=== PATIENT | female | born 1995 | race Caucasian/White ===

== ENCOUNTER 2017-03-01 17:26 | Emergency (ER) | payer OTHER ==
[~2017-03-01] VITALS: Ht 149.9 cm; Wt 87.0 kg
[~2017-03-01 17:26] MED LIST: ACYCLOVIR400 MG PO; ALBUTEROL SULF8.5 GM IH; AVIANE1 EACH PO; ENDOCET 5-3251 EACH PO; GABAPENTIN300 MG PO; HYDROCODON-ACE1 EAC7 PO; IBUPROFEN800 MG PO; IRON325 M1 PO; MACROBID100 MG PO; NAPROSYN500 MG PO; NAPROXEN500 MG PO; NORCO 5/3251 TABLET PO; PEN-VEE K,VEET500 MG PO; PREDNISONE10 MG PO; SILVADENE20 GM TP; SOLU-MEDRO40 MG/1 ML PO; TRAMADOL HCL50 MG PO; TYLENOL EXTRA500 MG PO; VALTREX50 MG/ML PO; ZOFRAN4 MG PO
[2017-03-01 18:59] LABS: HEMATOCRIT 36.9 % (36.0-46.0); MCH 29.8 PG (29.0-34.0); MCHC 34.4 G/DL (30.0-36.0); MCV 86.6 FL (83-99); MEAN PLAT.VOLUME 9.7 uM^3 (9.5-12.4); PLATELET COUNT 305 K/uL (156-360); RBC DIS.WIDTH-CV 13.6 % (11.8-14.6); RBC DIS.WIDTH-SD 42.5 % (39-53); RED BLOOD COUNT 4.26 M/uL (3.80-5.20); WHITE BLOOD COUNT 8.6 K/uL (4.1-10.2)
[2017-03-01 19:08] LABS: CHLORIDE 108 mEq/L (99-109); POTASSIUM 3.6 mEq/L (3.7-5.4); SODIUM 139 mEq/L (136-147)
[2017-03-01 19:10] LABS: GLUCOSE 77 mg/dL (70-99)
[2017-03-01 19:11] LABS: ANION GAP 13 MEQ/L (2-14)
[2017-03-01 19:12] LABS: TOTAL BILIRUBIN 0.1 mg/dL (0.0-1.0)
[2017-03-01 19:12] LABS: ADD MIUA? NO; BILIRUBIN NEGATIVE; BLOOD NEGATIVE; COLOR YELLOW ((YELLOW)); GLUCOSE (STRIP) NEGATIVE; KETONES NEGATIVE; LEUKOCYTES NEGATIVE; NITRITE NEGATIVE; PROTEIN (STRIP) 30; UCUL ADDED? NO; UROBILINOGEN 0.2 MG/DL (0.2-1.0)
[2017-03-01 19:13] LABS: ALKALINE PHOSPHATASE 79 IU/L (3-129)
[2017-03-01 19:14] LABS: GFR ESTIMATE (CALCULATED) > 59 mL/min/
[2017-03-01 19:15] LABS: UREA NITROGEN (BUN) 8 mg/dL (9-23)
[2017-03-01] MEDS ORDERED: REGLAN10 MG PO (19:43)
[2017-03-01 19:50] LABS: QUANTITATIVE HCG 45133.7 MIU/ML
[2017-03-01 20:05] VITALS: BP 126/79
== END 2017-03-01 20:02 | disposition home or self-care (01) ==
LOC: EME 17:26
DX: O99.89 Other specified diseases and conditions complicating pregnancy, childbirth and the puerperium (principal); G43.909 Migraine, unspecified, not intractable, without status migrainosus; O99.281 Endocrine, nutritional and metabolic diseases complicating pregnancy, first trimester; E86.0 Dehydration; O99.511 Diseases of the respiratory system complicating pregnancy, first trimester; J45.909 Unspecified asthma, uncomplicated; Z3A.13 13 weeks gestation of pregnancy
CPT/HCPCS: 80053; 81003; 84702; 85027; 99281; 99285; J1200; J2765; J3475; J7030

== ENCOUNTER 2017-03-15 16:46 | Emergency (ER) | payer OTHER ==
[~2017-03-15] VITALS: Ht 149.9 cm; Wt 85.6 kg
[~2017-03-15 16:46] MED LIST changes: +REGLAN10 MG PO
[2017-03-15 18:02] LABS: ADD MIUA? YES; BILIRUBIN NEGATIVE; BLOOD NEGATIVE; COLOR YELLOW ((YELLOW)); GLUCOSE (STRIP) NEGATIVE; KETONES NEGATIVE; LEUKOCYTES MODERATE; NITRITE NEGATIVE; PROTEIN (STRIP) NEGATIVE; SPECIFIC GRAVITY 1.016 (1.000-1.030); UROBILINOGEN 0.2 MG/DL (0.2-1.0)
[2017-03-15 18:07] LABS: BACTERIA NONE SEEN /HPF; EPITHELIAL CELLS 2+ /HPF; MUCUS 2+ /LPF; RED BLOOD CELLS 0-5 /HPF (0-5)
[2017-03-15] MEDS ORDERED: FLEXERIL10 MG PO (18:15)
[2017-03-15 18:31] VITALS: BP 111/66
== END 2017-03-15 18:32 | disposition home or self-care (01) ==
LOC: EME 16:46 → RME 16:46
PROVIDERS: Physician Assistant
DX: O99.89 Other specified diseases and conditions complicating pregnancy, childbirth and the puerperium (principal); S39.012A Strain of muscle, fascia and tendon of lower back, initial encounter; Z3A.16 16 weeks gestation of pregnancy; O99.332 Smoking (tobacco) complicating pregnancy, second trimester; F17.200 Nicotine dependence, unspecified, uncomplicated; J45.909 Unspecified asthma, uncomplicated; Z87.442 Personal history of urinary calculi
CPT/HCPCS: 81003; 99281; 99284

== ENCOUNTER 2017-04-03 20:06 | Outpatient (CLI) | payer OTHER ==
[~2017-04-03 20:06] MED LIST changes: +FLEXERIL10 MG PO
[2017-04-03 20:24] VITALS: BP 114/78
[2017-04-03 21:55] LABS: ADD MIUA? NO; BILIRUBIN NEGATIVE; BLOOD NEGATIVE; COLOR YELLOW ((YELLOW)); GLUCOSE (STRIP) NEGATIVE; KETONES NEGATIVE; LEUKOCYTES NEGATIVE; NITRITE NEGATIVE; PROTEIN (STRIP) NEGATIVE; SPECIFIC GRAVITY 1.009 (1.000-1.030); UROBILINOGEN 0.2 MG/DL (0.2-1.0)
[2017-04-03 22:43] VITALS: BP 107/60
[2017-04-04 04:02] LABS: CANDIDA DNA PROBE NEGATIVE; GARDNERELLA DNA PROBE NEGATIVE; INTERNAL CONTROL VALID? YES
== END 2017-04-03 23:40 | disposition home or self-care (01) ==
LOC: LDRP-OP 20:06 → 2WEST 20:08
PROVIDERS: Advanced Practice Midwife
DX: O26.892 Other specified pregnancy related conditions, second trimester (principal); O44.02 Complete placenta previa NOS or without hemorrhage, second trimester; N89.8 Other specified noninflammatory disorders of vagina; R10.10 Upper abdominal pain, unspecified; R10.30 Lower abdominal pain, unspecified; O99.332 Smoking (tobacco) complicating pregnancy, second trimester; F17.210 Nicotine dependence, cigarettes, uncomplicated; Z3A.18 18 weeks gestation of pregnancy
CPT/HCPCS: 59025; 81003; 87086; 87480; 87510; 87660; G0378

== ENCOUNTER 2017-05-24 20:19 | Outpatient (CLI) | payer OTHER ==
[2017-05-24 20:45] VITALS: BP 109/68
[2017-05-24 21:24] LABS: ADD MIUA? YES; BILIRUBIN NEGATIVE; BLOOD NEGATIVE; COLOR YELLOW ((YELLOW)); GLUCOSE (STRIP) NEGATIVE; KETONES NEGATIVE; LEUKOCYTES MODERATE; NITRITE NEGATIVE; PROTEIN (STRIP) NEGATIVE; UROBILINOGEN 0.2 MG/DL (0.2-1.0)
[2017-05-24 22:03] LABS: BACTERIA 3+ /HPF; EPITHELIAL CELLS 3+ /HPF; MUCUS 3+ /LPF; UCUL ADDED? YES; WHITE BLOOD CELLS 20-30 /HPF (0-5)
[2017-05-24 22:59] LABS: CANDIDA DNA PROBE NEGATIVE; GARDNERELLA DNA PROBE NEGATIVE; INTERNAL CONTROL VALID? YES
== END 2017-05-24 21:50 | disposition home or self-care (01) ==
LOC: LDRP-OP 20:19 → 2WEST 20:20 → LDRP-OP 10-05 16:17
PROVIDERS: Advanced Practice Midwife
DX: O46.92 Antepartum hemorrhage, unspecified, second trimester (principal); Z3A.25 25 weeks gestation of pregnancy
CPT/HCPCS: 59025; 81003; 87086; 87480; 87510; 87660; G0378

== ENCOUNTER 2017-06-23 17:22 | Outpatient (CLI) | payer OTHER ==
[2017-06-23 17:49] VITALS: BP 109/66
[2017-06-23 19:32] LABS: AMPHETAMINE NEGATIVE (500 ng/mL); BARBITURATES PRESUMPTIVE POSITIVE (200 ng/mL); BENZODIAZEPINES NEGATIVE (150 ng/mL); COCAINE NEGATIVE (150 ng/mL); METHADONE NEGATIVE (200 ng/mL); METHAMPHETAMINE NEGATIVE (500 ng/mL); OPIATES (MORPHINE) NEGATIVE (100 ng/mL); PHENCYCLIDINE NEGATIVE (25 ng/mL); THC CANNABINOIDS NEGATIVE (50 ng/mL); TRICYCLIC ANTIDEPRESSANTS NEGATIVE (300 ng/mL)
[2017-06-23 19:33] LABS: ADD MEDTOX COMMENT Y; INTERNAL CONTROLS VALID? YES; OXYCODONE NEGATIVE (100 ng/mL); PROPOXYPHENE NEGATIVE (300 ng/mL)
[2017-06-23 19:56] VITALS: BP 107/55
[2017-06-23 21:49] LABS: CANDIDA DNA PROBE NEGATIVE; GARDNERELLA DNA PROBE NEGATIVE; INTERNAL CONTROL VALID? YES
== END 2017-06-23 22:45 | disposition home or self-care (01) ==
LOC: LDRP-OP 17:22 → 2WEST 17:25 → LDRP-OP 10-05 22:05
PROVIDERS: Advanced Practice Midwife
DX: O26.899 Other specified pregnancy related conditions, unspecified trimester (principal); R10.9 Unspecified abdominal pain; O44.00 Complete placenta previa NOS or without hemorrhage, unspecified trimester; Z3A.00 Weeks of gestation of pregnancy not specified
CPT/HCPCS: 59025; 82731; 84999; 87480; 87510; 87660; G0378

== ENCOUNTER 2017-06-28 14:35 | Outpatient (CLI) | payer OTHER ==
[~2017-06-28] VITALS: Ht 149.9 cm; Wt 87.5 kg
[2017-06-28 14:50] VITALS: BP 129/74
[2017-06-28 16:41] VITALS: BP 118/64
[2017-06-28 17:16] LABS: ADD MIUA? YES; BILIRUBIN NEGATIVE; BLOOD NEGATIVE; COLOR YELLOW ((YELLOW)); GLUCOSE (STRIP) NEGATIVE; KETONES NEGATIVE; LEUKOCYTES TRACE; NITRITE NEGATIVE; PROTEIN (STRIP) NEGATIVE; SPECIFIC GRAVITY 1.008 (1.000-1.030); UROBILINOGEN 0.2 MG/DL (0.2-1.0)
[2017-06-28 17:18] LABS: BACTERIA NONE SEEN /HPF; EPITHELIAL CELLS RARE /HPF; MUCUS TRACE /LPF; RED BLOOD CELLS NONE SEEN /HPF (0-5); WHITE BLOOD CELLS 0-5 /HPF (0-5)
[2017-06-28 19:10] VITALS: BP 121/68
[2017-06-28 20:25] LABS: CANDIDA DNA PROBE NEGATIVE; GARDNERELLA DNA PROBE NEGATIVE; INTERNAL CONTROL VALID? YES
[2017-06-28 20:48] VITALS: BP 128/64
[2017-06-28] MEDS ORDERED: PROCARDIA10 MG PO (21:04)
== END 2017-06-28 21:40 | disposition home or self-care (01) ==
LOC: LDRP-OP 14:35 → 2WEST 14:36 → LDRP-OP 10-05 22:57
PROVIDERS: Advanced Practice Midwife
DX: O47.03 False labor before 37 completed weeks of gestation, third trimester (principal); O23.593 Infection of other part of genital tract in pregnancy, third trimester; Z3A.30 30 weeks gestation of pregnancy
CPT/HCPCS: 59025; 81003; 87086; 87480; 87510; 87660; G0378; J0702; J7120

== ENCOUNTER 2017-06-29 18:32 | Outpatient (CLI) | payer OTHER ==
[~2017-06-29] VITALS: Ht 149.9 cm; Wt 87.5 kg
[~2017-06-29 18:32] MED LIST changes: +PROCARDIA10 MG PO
[2017-06-29 19:05] VITALS: BP 119/68
== END 2017-06-29 19:25 | disposition home or self-care (01) ==
LOC: LDRP-OP 18:32 → 2WEST 18:33 → LDRP-OP 10-05 22:20
DX: O47.03 False labor before 37 completed weeks of gestation, third trimester (principal); Z3A.30 30 weeks gestation of pregnancy
CPT/HCPCS: 59025; G0378; J0702

== ENCOUNTER 2017-07-11 19:04 | Outpatient (CLI) | payer OTHER ==
[~2017-07-11] VITALS: Ht 149.9 cm; Wt 87.1 kg
[2017-07-11 19:31] VITALS: BP 108/65
[2017-07-11] MEDS ORDERED: FIORICET 50-301 EACH PO (19:47)
[2017-07-11] MEDS ORDERED: PRENATAL TABLE1 EAC3 PO (19:48)
[2017-07-11 21:00] LABS: ADD MIUA? YES; BILIRUBIN NEGATIVE; BLOOD NEGATIVE; COLOR STRAW ((YELLOW)); GLUCOSE (STRIP) NEGATIVE; KETONES NEGATIVE; LEUKOCYTES SMALL; NITRITE NEGATIVE; PROTEIN (STRIP) NEGATIVE; SPECIFIC GRAVITY 1.006 (1.000-1.030); UROBILINOGEN 0.2 MG/DL (0.2-1.0)
[2017-07-11 21:02] LABS: BACTERIA RARE /HPF; EPITHELIAL CELLS 2+ /HPF; MUCUS TRACE /LPF; RED BLOOD CELLS 0-5 /HPF (0-5); UCUL ADDED? NO; WHITE BLOOD CELLS 0-5 /HPF (0-5)
[2017-07-11 21:08] LABS: AMPHETAMINE NEGATIVE (500 ng/mL); BARBITURATES NEGATIVE (200 ng/mL); BENZODIAZEPINES NEGATIVE (150 ng/mL); COCAINE NEGATIVE (150 ng/mL); INTERNAL CONTROLS VALID? YES; METHADONE NEGATIVE (200 ng/mL); METHAMPHETAMINE NEGATIVE (500 ng/mL); OPIATES (MORPHINE) NEGATIVE (100 ng/mL); OXYCODONE NEGATIVE (100 ng/mL); PHENCYCLIDINE NEGATIVE (25 ng/mL); PROPOXYPHENE NEGATIVE (300 ng/mL); THC CANNABINOIDS NEGATIVE (50 ng/mL); TRICYCLIC ANTIDEPRESSANTS NEGATIVE (300 ng/mL)
== END 2017-07-11 21:10 | disposition home or self-care (01) ==
LOC: LDRP-OP 19:04 → 2WEST 19:06 → LDRP-OP 10-05 19:42
PROVIDERS: Advanced Practice Midwife
DX: O26.893 Other specified pregnancy related conditions, third trimester (principal); Z3A.32 32 weeks gestation of pregnancy
CPT/HCPCS: 59025; 81003; 87086; G0378

== ENCOUNTER 2017-08-02 16:19 | Outpatient (CLI) | payer OTHER ==
[~2017-08-02] VITALS: Ht 149.9 cm; Wt 86.2 kg
[~2017-08-02 16:19] MED LIST changes: +FIORICET 50-301 EACH PO; +PRENATAL TABLE1 EAC3 PO
[2017-08-02 16:59] VITALS: BP 119/65
[2017-08-02 17:26] LABS: EOSINOPHIL (%) 0.4 % (0-5); HEMATOCRIT 26.7 % (36.0-46.0); IMMATURE GRANULOCYTE (%) 1.4 % (0.0-0.7); IMMATURE GRANULOCYTE COUNT 0.1 K/uL; INSTRUMENT ABS NEUTROPHIL CT 6.4 K/uL; LYMPHOCYTE COUNT 1.6 K/uL (1.0-2.8); MCH 31.1 PG (29.0-34.0); MCHC 34.5 G/DL (30.0-36.0); MCV 90.2 FL (83-99); MEAN PLAT.VOLUME 9.7 uM^3 (9.5-12.4); MONOCYTE (%) 4.6 % (3-12); MONOCYTE COUNT 0.4 K/uL (0-0.8); NEUTROPHIL (%) 74.7 % (45-76); NEUTROPHIL COUNT 6.4 K/uL (1.8-6.4); PLATELET COUNT 242 K/uL (156-360); RBC DIS.WIDTH-CV 13.8 % (11.8-14.6); RED BLOOD COUNT 2.96 M/uL (3.80-5.20); WHITE BLOOD COUNT 8.5 K/uL (4.1-10.2)
[2017-08-02 17:36] LABS: ANION GAP 8 MEQ/L (2-14); CHLORIDE 107 MEQ/L (99-109); POTASSIUM 3.1 MEQ/L (3.7-5.4); SAMPLE HEMOLYSIS CHECK 0; SAMPLE ICTERIC CHECK 0; SAMPLE LIPEMIA CHECK 0; SODIUM 136 MEQ/L (136-147); TOTAL BILIRUBIN 0.2 MG/DL (0.0-1.0)
[2017-08-02 17:42] LABS: ALKALINE PHOSPHATASE 145 IU/L (3-129); GFR ESTIMATE (CALCULATED) > 59 mL/min/; GLUCOSE 243 mg/dL (70-99); UREA NITROGEN (BUN) 6 mg/dL (9-23)
[2017-08-02 18:54] LABS: ADD MIUA? YES; BILIRUBIN NEGATIVE; BLOOD NEGATIVE; COLOR YELLOW ((YELLOW)); KETONES 20; LEUKOCYTES TRACE; NITRITE NEGATIVE; PROTEIN (STRIP) NEGATIVE; SPECIFIC GRAVITY 1.027 (1.000-1.030); UROBILINOGEN 0.2 MG/DL (0.2-1.0)
[2017-08-02 19:03] LABS: GLUCOSE (STRIP) 500
[2017-08-02 19:25] LABS: BACTERIA RARE /HPF; EPITHELIAL CELLS 1+ /HPF; HYALINE CASTS 0-5 /LPF; MUCUS 4+ /LPF; WHITE BLOOD CELLS 0-5 /HPF (0-5)
[2017-08-02 20:02] VITALS: BP 123/78
== END 2017-08-02 21:00 | disposition home or self-care (01) ==
LOC: LDRP-OP 16:19 → 2WEST 16:20 → LDRP-OP 10-05 22:35
PROVIDERS: Advanced Practice Midwife
DX: O26.893 Other specified pregnancy related conditions, third trimester (principal); R11.2 Nausea with vomiting, unspecified; Z3A.35 35 weeks gestation of pregnancy
CPT/HCPCS: 59025; 80053; 81003; 85025; G0378

== ENCOUNTER 2017-08-07 16:59 | Outpatient (CLI) | payer OTHER ==
[2017-08-07 17:24] VITALS: BP 120/69
[2017-08-07 18:34] LABS: AMPHETAMINE NEGATIVE (500 ng/mL); BENZODIAZEPINES NEGATIVE (150 ng/mL); COCAINE NEGATIVE (150 ng/mL); METHADONE NEGATIVE (200 ng/mL); METHAMPHETAMINE NEGATIVE (500 ng/mL); OPIATES (MORPHINE) NEGATIVE (100 ng/mL); PHENCYCLIDINE NEGATIVE (25 ng/mL); THC CANNABINOIDS NEGATIVE (50 ng/mL); TRICYCLIC ANTIDEPRESSANTS NEGATIVE (300 ng/mL)
[2017-08-07 18:35] LABS: BARBITURATES NEGATIVE (200 ng/mL); INTERNAL CONTROLS VALID? YES; OXYCODONE NEGATIVE (100 ng/mL); PROPOXYPHENE NEGATIVE (300 ng/mL)
== END 2017-08-07 18:23 | disposition home or self-care (01) ==
LOC: LDRP-OP 16:59 → 2WEST 17:01 → LDRP-OP 10-05 21:48
PROVIDERS: Advanced Practice Midwife
DX: O26.893 Other specified pregnancy related conditions, third trimester (principal); R10.9 Unspecified abdominal pain; R25.2 Cramp and spasm; Z3A.36 36 weeks gestation of pregnancy
CPT/HCPCS: 59025; 87086; G0378

== ENCOUNTER 2017-08-22 15:03 | Inpatient (IN) | payer OTHER ==
[~2017-08-22] VITALS: Ht 149.9 cm; Wt 85.3 kg
[2017-08-26] MEDS ORDERED: ZOVIRAX400 MG PO (13:23)
[2017-08-26] MEDS ORDERED: IRON325 M1 PO (13:23)
[2017-08-28] VITALS (14 sets, daily range): BP systolic 99–138; BP diastolic 54–76
[2017-08-28 05:47] LABS: HEMATOCRIT 30.3 % (36.0-46.0); MCH 30.4 PG (29.0-34.0); MCHC 33.7 G/DL (30.0-36.0); MCV 90.2 FL (83-99); MEAN PLAT.VOLUME 10.2 uM^3 (9.5-12.4); PLATELET COUNT 241 K/uL (156-360); RBC DIS.WIDTH-CV 15.7 % (11.8-14.6); RBC DIS.WIDTH-SD 50.2 % (39-53); RED BLOOD COUNT 3.36 M/uL (3.80-5.20)
[2017-08-28 19:35] LABS: HEMATOCRIT 23.4 % (36.0-46.0); MCH 30.3 PG (29.0-34.0); MCHC 33.8 G/DL (30.0-36.0); MCV 89.7 FL (83-99); MEAN PLAT.VOLUME 10.1 uM^3 (9.5-12.4); PLATELET COUNT 293 K/uL (156-360); RBC DIS.WIDTH-CV 15.3 % (11.8-14.6); RBC DIS.WIDTH-SD 49.7 % (39-53); WHITE BLOOD COUNT 18.5 K/uL (4.1-10.2)
[2017-08-28 19:42] LABS: RED BLOOD COUNT 2.61 M/uL (3.80-5.20)
[2017-08-29] VITALS (14 sets, daily range): BP systolic 101–133; BP diastolic 57–78
[2017-08-29 06:54] LABS: EOSINOPHIL (%) 0.1 % (0-5); HEMATOCRIT 26.2 % (36.0-46.0); IMMATURE GRANULOCYTE (%) 0.9 % (0.0-0.7); IMMATURE GRANULOCYTE COUNT 0.2 K/uL; INSTRUMENT ABS NEUTROPHIL CT 12.4 K/uL; LYMPHOCYTE COUNT 2.2 K/uL (1.0-2.8); MCH 30.2 PG (29.0-34.0); MCHC 34.4 G/DL (30.0-36.0); MCV 87.9 FL (83-99); MEAN PLAT.VOLUME 9.8 uM^3 (9.5-12.4); MONOCYTE (%) 6.6 % (3-12); NEUTROPHIL (%) 78.4 % (45-76); NEUTROPHIL COUNT 12.4 K/uL (1.8-6.4); PLATELET COUNT 252 K/uL (156-360); RBC DIS.WIDTH-CV 14.6 % (11.8-14.6); RBC DIS.WIDTH-SD 45.1 % (39-53); RED BLOOD COUNT 2.98 M/uL (3.80-5.20); WHITE BLOOD COUNT 15.9 K/uL (4.1-10.2)
[2017-08-30 03:00] VITALS: BP 97/63
[2017-08-30 08:04] VITALS: BP 115/72
[2017-08-30] MEDS ORDERED: IBUPROFEN800 MG PO (10:27)
[2017-08-30] MEDS ORDERED: ENDOCET 5-3251 EACH PO (10:27)
[2017-08-30 12:18] VITALS: BP 124/83
[2017-08-30 15:29] VITALS: BP 121/83
== END 2017-08-30 16:40 | disposition home or self-care (01) | DRG 765 ==
LOC: 2SOUTH 15:03 → 2WEST 08-28 04:44 → 2SOUTH 08-28 10:36 → 2WEST 08-30 16:40
PROVIDERS: Obstetrics & Gynecology; Obstetrics & Gynecology Obstetrics
PROC: 10D00Z1 Extraction of Products of Conception, Low, Open Approach (ICD-10-PCS; principal; 2017-08-28)
PROC: 30233N1 Transfusion of Nonautologous Red Blood Cells into Peripheral Vein, Percutaneous Approach (ICD-10-PCS; 2017-08-28)
DX: O44.43 Low lying placenta NOS or without hemorrhage, third trimester (principal); O99.02 Anemia complicating childbirth; D62 Acute posthemorrhagic anemia; O69.81X0 Labor and delivery complicated by cord around neck, without compression, not applicable or unspecified; O98.32 Other infections with a predominantly sexual mode of transmission complicating childbirth; A60.00 Herpesviral infection of urogenital system, unspecified; O99.214 Obesity complicating childbirth; E66.9 Obesity, unspecified; O99.334 Smoking (tobacco) complicating childbirth; F17.210 Nicotine dependence, cigarettes, uncomplicated; Z68.39 Body mass index [BMI] 39.0-39.9, adult; Z3A.39 39 weeks gestation of pregnancy; Z37.0 Single live birth; Z87.442 Personal history of urinary calculi
CPT/HCPCS: 85025; 85027; 86850; 86900; 86901; 86920; J0690; J1100; J2274; J2765; J3010; J7120; P9016

== ENCOUNTER 2017-09-07 10:59 | Emergency (ER) | payer OTHER ==
[~2017-09-07] VITALS: Ht 149.9 cm; Wt 83.1 kg
[~2017-09-07 10:59] MED LIST changes: +ZOVIRAX400 MG PO
[2017-09-07 12:29] LABS: EOSINOPHIL (%) 1.7 % (0-5); EOSINOPHIL COUNT 0.2 K/uL (0-0.3); HEMATOCRIT 35.4 % (36.0-46.0); IMMATURE GRANULOCYTE COUNT 0.2 K/uL; INSTRUMENT ABS NEUTROPHIL CT 6.9 K/uL; LYMPHOCYTE COUNT 1.5 K/uL (1.0-2.8); MCH 29.8 PG (29.0-34.0); MCHC 32.5 G/DL (30.0-36.0); MCV 91.7 FL (83-99); MEAN PLAT.VOLUME 8.8 uM^3 (9.5-12.4); MONOCYTE (%) 4.6 % (3-12); MONOCYTE COUNT 0.4 K/uL (0-0.8); NEUTROPHIL (%) 75.1 % (45-76); NEUTROPHIL COUNT 6.9 K/uL (1.8-6.4); PLATELET COUNT 460 K/uL (156-360); RBC DIS.WIDTH-CV 14.5 % (11.8-14.6); RBC DIS.WIDTH-SD 48.3 % (39-53); RED BLOOD COUNT 3.86 M/uL (3.80-5.20); WHITE BLOOD COUNT 9.2 K/uL (4.1-10.2)
[2017-09-07 12:32] LABS: CHLORIDE 106 mEq/L (99-109); POTASSIUM 3.7 mEq/L (3.7-5.4); SODIUM 140 mEq/L (136-147)
[2017-09-07 12:34] LABS: GLUCOSE 90 mg/dL (70-99)
[2017-09-07 12:35] LABS: ANION GAP 11 MEQ/L (2-14)
[2017-09-07 12:36] LABS: TOTAL BILIRUBIN 0.7 mg/dL (0.0-1.0)
[2017-09-07 12:38] LABS: ALKALINE PHOSPHATASE 826 IU/L (3-129); GFR ESTIMATE (CALCULATED) > 59 mL/min/
[2017-09-07 12:39] LABS: UREA NITROGEN (BUN) 13 mg/dL (9-23)
[2017-09-07] MEDS ORDERED: FLEXERIL10 MG PO (17:09)
[2017-09-07] MEDS ORDERED: AUGMENTIN875 MG PO (17:10)
[2017-09-07 17:30] VITALS: BP 117/74
[2017-09-07 17:31] VITALS: BP 117/74
[2017-09-07 18:27] VITALS: BP 120/78
[2017-09-07 18:44] LABS: INTER. NORMALIZED RATIO 1.1
[2017-09-07 18:47] LABS: PTT 35.1 SEC (25-37)
[2017-09-07 18:57] VITALS: BP 128/75
[2017-09-07 19:12] LABS: FIBRINOGEN 901 mg/dL (150-450)
[2017-09-07 19:25] VITALS: BP 133/80
[2017-09-07 19:31] LABS: C DIFF TOXIN NEGATIVE (NEGATIVE)
[2017-09-07 19:32] LABS: PROBE CHECK PASS; SPECIMEN PROCESSING CONTROL PASS
[2017-09-07 22:34] VITALS: BP 133/77
[2017-09-08 04:36] VITALS: BP 121/77
[2017-09-08 07:03] VITALS: BP 128/79
[2017-09-08 08:02] LABS: EOSINOPHIL COUNT 0.2 K/uL (0-0.3); HEMATOCRIT 28.6 % (36.0-46.0); IMMATURE GRANULOCYTE COUNT 0.2 K/uL; LYMPHOCYTE COUNT 1.8 K/uL (1.0-2.8); MCH 29.3 PG (29.0-34.0); MCHC 32.2 G/DL (30.0-36.0); MCV 91.1 FL (83-99); MEAN PLAT.VOLUME 8.8 uM^3 (9.5-12.4); MONOCYTE (%) 5.3 % (3-12); MONOCYTE COUNT 0.5 K/uL (0-0.8); NEUTROPHIL (%) 71.6 % (45-76); PLATELET COUNT 445 K/uL (156-360); RBC DIS.WIDTH-CV 14.5 % (11.8-14.6); RBC DIS.WIDTH-SD 47.9 % (39-53); RED BLOOD COUNT 3.14 M/uL (3.80-5.20); WHITE BLOOD COUNT 9.7 K/uL (4.1-10.2)
[2017-09-08 08:18] LABS: ALKALINE PHOSPHATASE 753 IU/L (3-129); ANION GAP 8 MEQ/L (2-14); CHLORIDE 106 MEQ/L (99-109); GFR ESTIMATE (CALCULATED) > 59 mL/min/; GLUCOSE 92 mg/dL (70-99); POTASSIUM 3.7 MEQ/L (3.7-5.4); SAMPLE HEMOLYSIS CHECK 0; SAMPLE ICTERIC CHECK 0; SAMPLE LIPEMIA CHECK 0; SODIUM 141 MEQ/L (136-147); TOTAL BILIRUBIN 0.6 MG/DL (0.0-1.0); UREA NITROGEN (BUN) 12 mg/dL (9-23)
[2017-09-08] MEDS ORDERED: ENDOCET 5-3251 EACH PO (11:29)
[2017-09-08 11:42] VITALS: BP 134/88
== END 2017-09-08 12:20 | disposition home or self-care (01) ==
LOC: EME 10:59 → 2WEST 16:47
PROVIDERS: Emergency Medicine; Obstetrics & Gynecology
DX: O90.2 Hematoma of obstetric wound (principal); O86.20 Urinary tract infection following delivery, unspecified; O16.5 Unspecified maternal hypertension, complicating the puerperium; O99.89 Other specified diseases and conditions complicating pregnancy, childbirth and the puerperium; R51 Headache; R74.8 Abnormal levels of other serum enzymes; O99.03 Anemia complicating the puerperium; D62 Acute posthemorrhagic anemia; Z87.891 Personal history of nicotine dependence; J45.909 Unspecified asthma, uncomplicated
CPT/HCPCS: 74176; 74177; 80053; 85025; 85384; 85610; 85730; 86850; 86900; 86901; 87493; 99281; 99285; G0378; J7030